=== PATIENT | male | born 1980 | race Hispanic/Latino ===

== ENCOUNTER 2018-05-01 18:26 | Emergency (ER) | payer OTHER ==
[2018-05-01] MEDS ORDERED: Sodium Chloride 0.9% 1,000 ML IV STA (18:58)
--- NOTE | 2018-05-01 19:00 | ED PDOC ---
HPI: Abdomen Time Seen by Provider: 05/01/18 18:55 Chief Complaint (Nursing): Abdominal Pain History Per: Patient Onset/Duration Of Symptoms: Hrs (2) Current Symptoms Are (Timing): Still Present Severity: Moderate Location Of Pain/Discomfort: LLQ, Other (Left flank) Quality Of Discomfort: Unable To Describe Associated Symptoms: Nausea, Vomiting, Urinary Symptoms. denies: Fever Exacerbating Factors: None Alleviating Factors: None Additional Complaint(s): Left flank pain radiating to LLQ x 2 hrs. Assoc with nausea and vomiting. Also c/o dysuria. Denies fever or diarrhea. Had similar symptoms earlier this week but resolved spontaneously. Past Medical History Vital Signs: Last Vital Signs Temp 97.8 F 05/01/18 18:49 Pulse 87 05/01/18 18:49 Resp 16 05/01/18 18:49 BP 141/96 H 05/01/18 18:49 Pulse Ox 100 05/01/18 18:49 - Medical History PMH: No Chronic Diseases - Family History Family History: States: Unknown Family Hx - Allergies Allergies/Adverse Reactions: Allergies Allergy/AdvReac Type Severity Reaction Status Date / Time No Known Allergies Allergy Verified 05/01/18 18:53 Review of Systems Constitutional: Negative for: Fever Gastrointestinal: Positive for: Nausea, Vomiting, Abdominal Pain Genitourinary Male: Positive for: Dysuria Musculoskeletal: Positive for: Back Pain Physical Exam - Physical Exam Appears: Positive for: Non-toxic, Uncomfortable Skin: Positive for: Normal Color, Warm, DRY Gastrointestinal/Abdominal: Positive for: Bowel Sounds, Soft, Tenderness (LLQ) Back: Positive for: Normal Inspection, L CVA Tenderness. Negative for: Vertebral Tenderness Neurologic/Psych: Positive for: Alert, Oriented - ECG O2 Sat by Pulse Oximetry: 100 Medical Decision Making Medical Decision Making: Left flank pain r/o kidney stone vs pyelonephritis CT abd pelvis urine dip Toradol, Zofran Disposition - Clinical Impression Clinical Impression: Abdominal pain - Patient ED Disposition Is Patient to be Admitted: Transfer of Care - Disposition Disposition: Transfer of Care Disposition Time: 19:02 Condition: FAIR Forms: [employer] ([place]) Patient Signed Over To: Zaid Mckay
[2018-05-01 19:27] LABS: BASO % 0.3 % (0.0-2.0); EOS # 0.1 K/uL (0.0-0.7); EOS % 0.5 % (0.0-4.0); HEMOGLOBIN 15.1 g/dL (12.0-18.0); LYMPH % 10.2 % (20.0-40.0); MEAN CELL VOLUME 91.3 fl (80.0-94.0); MEAN CORPUSCULAR HEMOGLOBIN 30.8 pg (27.0-31.0); MEAN CORPUSCULAR HGB CONC 33.8 g/dL (33.0-37.0); MEAN PLATELET VOLUME 9.2 fl (7.2-11.7); MONO # 0.7 K/uL (0.0-0.8); MONO % 6.9 % (0.0-10.0); NEUT # 8.3 K/uL (1.8-7.0); NEUT % 82.1 % (50.0-75.0); RBC 4.9 Mil/uL (4.40-5.90); RED CELL DISTRIBUTION WIDTH 13.8 % (11.5-14.5); WHITE BLOOD COUNT 10.1 K/uL (4.8-10.8)
--- NOTE | 2018-05-01 19:31 | ED PDOC ---
- Laboratory Results Result Diagrams: 05/01/18 19:20 05/01/18 19:20 - ECG O2 Sat by Pulse Oximetry: 100 (RA) Pulse Ox Interpretation: Normal Medical Decision Making Medical Decision Making: Time: 1899 -- Patient endorsed to me by Dr. Love, pending labs, CT and re-evaluation. Time: 1941 CT RESULTS FINDINGS: LUNG BASES: The lung bases appear clear. No pleural effusions are seen. LIVER: Unremarkable. GALLBLADDER AND BILE DUCTS: The gallbladder appears within normal limits. No radioopaque gallstones are seen. No biliary ductal dilatation is evident. PANCREAS: Unremarkable. SPLEEN: Unremarkable. ADRENAL GLANDS: Unremarkable. KIDNEYS, URETERS, AND BLADDER: There is an approximate 4 mm rounded calculus at the left distal ureter. There is mild hydronephrosis of the left kidney and the left ureter. Right kidney appears normal. STOMACH AND BOWEL: Unremarkable appearance of the stomach and bowel. No evidence of bowel obstruction. No evidence suggesting enteritis or colitis. APPENDIX: No evidence of acute appendicitis on CT examination. PERITONEUM: No free fluid. No free air. LYMPH NODES: No lymphadenopathy is evident. REPRODUCTIVE: Unremarkable as visualized. VASCULATURE: No evidence of abdominal aortic aneurysm. BONES: No aggressive appearing osseous lesion. No acute osseous pathology evident. IMPRESSION: Small rounded calculus of approximately 4 mm at the left distal ureter. Mild hydronephrosis left kidney and mild left hydroureter. Clinical correlation and follow-up study recommended. Electronically signed on May 01, 2018 7:42:29 PM EST by: Romero Devine M.D., Certified by [facility], Diagnostic Radiology Time: 2138 -- Labs reviewed and demonstrate no clinically significant abnormalities. Patient reports an improvement of symptoms and is stable upon discharge home with a diagnosis of ureteral calculus. Patient instructed to follow up with a urologist for further management. Return precautions provided. __ Scribe Attestation: Documented by Rebekah Merlos, acting as a scribe for Zaid Mckay MD. Provider Scribe Attestation: All medical record entries made by the Scribe were at my direction and personally dictated by me. I have reviewed the chart and agree that the record accurately reflects my personal performance of the history, physical exam, medical decision making, and the department course for this patient. I have also personally directed, reviewed, and agree with the discharge instructions and disposition. Disposition Counseled Patient/Family Regarding: Studies Performed, Diagnosis, Need For Followup, Rx Given - Clinical Impression Clinical Impression: Ureteral calculus, left - POA Present On Arrival: None - Disposition Referrals: Petey Ricketts MD [Medical Doctor] - Disposition: Routine/Home Disposition Time: 21:39 Condition: STABLE Prescriptions: Ondansetron ODT [Zofran ODT] 4 mg PO Q6 PRN #8 odt PRN Reason: Nausea/Vomiting Tamsulosin [Flomax] 0.4 mg PO DAILY #10 cap traMADol [Ultram] 50 mg PO Q6 PRN #10 tab PRN Reason: flank pain Instructions: Renal Colic, How to Strain Your Urine Forms: [facility] ([place])
[2018-05-01 19:34] LABS: ALB/GLOB RATIO 1.6 (1.0-2.1); ALBUMIN 4.8 g/dL (3.5-5.0); ALT/SGPT 149 U/L (21-72); AST/SGOT 98 U/L (17-59); BLOOD UREA NITROGEN 16 mg/dl (9-20); CALCIUM 10.2 mg/dL (8.4-10.2); GFR NON-AFRICAN AMERICAN > 60
[2018-05-01] MEDS ORDERED: Morphine 4 MG/ML VIAL ONE (20:21)
[2018-05-01] MEDS ORDERED: Morphine 4 MG/ML VIAL IVP ONE (20:30)
[2018-05-01 21:20] LABS: URINE BACTERIA RARE (<OCC); URINE BILIRUBIN NEGATIVE (NEGATIVE); URINE BLOOD LARGE (NEGATIVE); URINE CALCIUM OXALATE CRYSTALS RARE /hpf (<OCC); URINE CLARITY CLOUDY (Clear); URINE COLOR YELLOW (YELLOW); URINE GLUCOSE (UA) NEG (NEGATIVE); URINE LEUKOCYTE ESTERASE NEG Leu/uL (Negative); URINE PROTEIN 100 mg/dL (NEGATIVE); URINE UROBILINOGEN 0.2-1.0 mg/dL (0.2-1.0)
[2018-05-01 21:49] VITALS: BP 138/73; PULSE 85; RESP 18; TEMP 98.5; O2SAT 98
--- NOTE | 2018-05-02 09:32 | CT ---
Date of service: 05/01/2018 PROCEDURE: CT Abdomen and Pelvis without intravenous contrast HISTORY: r/o kidney stone COMPARISON: None. TECHNIQUE: Unenhanced. Neither IV nor oral contrast administered Radiation dose: Total exam DLP = 313.26 mGy-cm. This CT exam was performed using one or more of the following dose reduction techniques: Automated exposure control, adjustment of the mA and/or kV according to patient size, and/or use of iterative reconstruction technique. FINDINGS: LOWER THORAX: Unremarkable. LIVER: Hepatomegaly. Hepatic steatosis. No focal masses. No intrahepatic bile duct dilatation or perihepatic ascites. GALLBLADDER AND BILE DUCTS: Unremarkable. PANCREAS: Unremarkable. No gross lesion or ductal dilatation. SPLEEN: Unremarkable. ADRENALS: Unremarkable. No mass. KIDNEYS AND URETERS: Left kidney in ureter: 3 mm stone within 1 cm of the left ureterovesical junction. Proximal hydroureter, hydronephrosis and an edematous left kidney detected. No perinephric collections identified. No upper tract calculi identified. Right kidney in ureter: Unremarkable. No hydronephrosis. No solid mass. VASCULATURE: Unremarkable. No aortic aneurysm. No atherosclerotic calcification or mural plaque present. BOWEL: Unremarkable. No obstruction. No gross mural thickening. APPENDIX: A normal appendix is visualized in it's entirety. PERITONEUM: Unremarkable. No free fluid. No free air. LYMPH NODES: Unremarkable. No enlarged lymph nodes. BLADDER: Unremarkable. REPRODUCTIVE: Unremarkable. BONES: No acute fracture. OTHER FINDINGS: None. IMPRESSION: Unilateral, left obstructive uropathy related to 3 mm stone adjacent to the left ureterovesical junction. Resultant left hydroureter and hydronephrosis. No upper tract calculi detected. Concordant results (preliminary interpretation) provided by [employer]. Procedure Completed: 19:25. Preliminary Report: Interpreted and electronically signed: 19:42. Final Interpretation: 09:28. May 02, 2018
== END 2018-05-01 21:50 | disposition home or self-care (01) ==
LOC: H.ER 18:26
DX: N13.2 Hydronephrosis with renal and ureteral calculous obstruction (principal)
CPT/HCPCS: 74176; 80053; 81003; 85025; 87086; 96374; 96375; 99283; J1885; J2270; J2405; J7030